=== PATIENT | male | born 1945 | race Caucasian/White ===

== ENCOUNTER → 2016-10-29 | Outpatient (CLI) | payer BC ==
[~2016-10-29] MED LIST: ASCO1CAP3 PO; CLC100 PO; CYAN500T13 PO; LISI20TA3 PO; MAGN400T6 PO; METO50TA16 PO; MULT-506 PO; SIMV20TA2 PO; TRIATAB3 PO
== END | disposition home or self-care (01) ==
LOC: C.LABMFLN 11:25
PROVIDERS: ATTEND Urology
DX: C61 Malignant neoplasm of prostate (principal)

== ENCOUNTER → 2016-11-20 | Outpatient (CLI) | payer BC ==
[2016-11-20 13:44] LABS: URINE APPEARANCE CLEAR (CLEAR); URINE BILIRUBIN NEG (NEG); URINE COLOR DK YELLOW; URINE NITRITE NEG (NEG); URINE PH 7.5 (4.5-7.5); URINE SPECIFIC GRAVITY 1.025 (1.000-1.030); UROBILINOGEN NEG (NEG)
[2016-11-20 13:47] LABS: MANUAL MICROSCOPIC REQUIRED? NO; REVIEW REQ? NO
== END | disposition home or self-care (01) ==
LOC: C.LABMFLN 11:06
PROVIDERS: ATTEND Surgery
DX: Z01.818 Encounter for other preprocedural examination (principal)

== ENCOUNTER → 2016-12-14 | Outpatient (CLI) | payer BC ==
[2016-12-14 14:30] LABS: CALCIUM 9.2 mg/dl (8.5-10.1)
[2016-12-14 14:33] LABS: ALT/SGPT 52 U/L (12-78); AST/SGOT 17 U/L (15-37); BLOOD UREA NITROGEN 22 mg/dl (7-18); BUN/CREATININE RATIO 22.9 (10-20); CARBON DIOXIDE 29 mmol/L (21-32); CHLORIDE 105 mmol/L (98-107); CHOLESTEROL 170 mg/dl (0-200); CREATININE 0.96 mg/dl (0.60-1.40); GLUCOSE 109 mg/dl (70-99); POTASSIUM 3.8 mmol/L (3.5-5.1); SODIUM 142 mmol/L (136-145); TRIGLYCERIDES 59 mg/dl (0-150); VERY LOW DENSITY LIPOPROT CALC 12 mg/dl
[2016-12-14 14:36] LABS: CHOLESTEROL/HDL RATIO 2.9; HDL CHOLESTEROL 59 mg/dl; LDL CHOLESTEROL CALCULATED 99 mg/dl
== END | disposition home or self-care (01) ==
LOC: C.LABMFLN 07:46
PROVIDERS: ATTEND Family Medicine
DX: I10 Essential (primary) hypertension (principal); E78.5 Hyperlipidemia, unspecified; E83.42 Hypomagnesemia; R97.20 Elevated prostate specific antigen [PSA]

== ENCOUNTER → 2017-05-07 | Outpatient (CLI) | payer BC | END | disposition home or self-care (01) | LOC: C.LABMFLN 08:16 | PROVIDERS: ATTEND Urology | DX: C61 Malignant neoplasm of prostate (principal) ==

== ENCOUNTER → 2017-08-18 | Outpatient (CLI) | payer BC ==
[~2017-08-18] MED LIST changes: +AMLO10TA3 PO; +CARV25TA PO; +HYDR25TA4 PO; +LISI40TA PO
[2017-08-18 13:25] LABS: ALT/SGPT 30 U/L (12-78); AST/SGOT 18 U/L (15-37); BLOOD UREA NITROGEN 20 mg/dl (7-18); CALCIUM 9.2 mg/dl (8.5-10.1); CARBON DIOXIDE 30 mmol/L (21-32); CREATININE 1.01 mg/dl (0.60-1.40); GLUCOSE 123 mg/dl (70-99); POTASSIUM 3.7 mmol/L (3.5-5.1); SODIUM 138 mmol/L (136-145)
[2017-08-18 13:28] LABS: CHOLESTEROL 152 mg/dl (0-200); LDL CHOLESTEROL CALCULATED 83 mg/dl
== END | disposition home or self-care (01) ==
LOC: C.LABMFLN 08:31
PROVIDERS: ATTEND Family Medicine
DX: I10 Essential (primary) hypertension (principal); E78.5 Hyperlipidemia, unspecified; E83.42 Hypomagnesemia

== ENCOUNTER → 2017-11-04 | Outpatient (CLI) | payer BC ==
[~2017-11-04] MED LIST changes: -AMLO10TA3 PO; -CARV25TA PO; -HYDR25TA4 PO; -LISI40TA PO
== END | disposition home or self-care (01) ==
LOC: C.LABMFLN 08:16
PROVIDERS: ATTEND Urology
DX: C61 Malignant neoplasm of prostate (principal)

== ENCOUNTER → 2018-04-11 | Day surgery (SDC) | payer BC ==
[2018-04-04 14:49] VITALS: BMI 27.0
[~2018-04-11] VITALS: Ht 180.3 cm; Wt 88.6 kg
[~2018-04-11] MED LIST changes: +AMLO10TA3 PO; +CARV25TA PO; -CLC100 PO; +HYDR25TA4 PO; -LISI20TA3 PO; +LISI40TA PO; -METO50TA16 PO; +PROPOFOL IV EMULSION 10 MG/ML 20 ML VIAL ONE; +SODIUM CHLORIDE 0.9% 500ML 500 ML IV ONE; -TRIATAB3 PO
[2018-04-11 13:00] VITALS: Ht 180.3 cm; Wt 88.6 kg
--- NOTE | 2018-04-11 13:42 | Endo History and Physical ---
History & Physical Date of Service: Apr 11, 2018. Chief Complaint: SCREENING Referring Physician: DR. GRAVES History of Present Illness 72 yo CM who presents for screening colonoscopy. Past Medical History Arthritis, High Cholesterol, Hypertension Past Surgical History Hx Cardiac Surgery: No Hx Internal Defibrillator: No Hx Pacemaker: No Hx Abdominal Surgery: No Hx of Implantable Prosthesis: No Hx Post-Op Nausea and Vomiting: No Hx Cancer Surgery: Yes (PROSTATECTOMY) Hx Thoracic Surgery: No Hx Orthopedic: Yes (LUMBAR DISC,R RCR, FINGER AMP REVISION) Hx Urinary Tract Surgery: Yes (TURP, PROSTATECTOMY, artificial urethral sphincter surgery) Family History None Social History Smoking Status: Former Smoker Hx Substance Use: No Hx Alcohol Use: No Allergies Coded Allergies: Penicillins (Verified Allergy, Unknown, HIVES, 04/04/18) Current Medications Reported Home Medications Medications Dose Route/Sig Max Daily Dose Days Date Category Norvasc (Amlodipine Besylate) 10 Mg Tab 10 Mg PO QAM 04/04/18 Reported Coreg (Carvedilol) 25 Mg Tab 25 Mg PO BID 04/04/18 Reported Hctz (Hydrochlorothiazide) 25 Mg Tab 25 Mg PO QAM 04/04/18 Reported Zestril (Lisinopril) 40 Mg Tab 40 Mg PO QAM 04/04/18 Reported Vitamin B12 500MCG (Cyanocobalamin) 500 Mcg Tab 500 Mcg PO QAM 04/08/15 Reported Vitamin C (Ascorbic Acid) 500 Mg Cap 500 Mg PO QAM 04/08/15 Reported Multivitamin (Multivitamins) Tab 1 Tab PO QAM 04/08/15 Reported Zocor (Simvastatin) 20 Mg Tab 20 Mg PO QPM 04/08/15 Reported Mag-Ox (Magnesium Oxide) 400 Mg Tab 400 Mg PO QAM 04/08/15 Reported Vital Signs Weight (Kilograms): 88.64 Height (Feet): 5 Height (Inches): 11 Date Time Temp Pulse Resp B/P (MAP) Pulse Ox O2 Delivery O2 Flow Rate FiO2 04/11/18 13:10 36.5 68 18 130/80 (97) 96 Room Air Physical Exam General Appearance: WD/WN, no apparent distress Respiratory/Chest: Auscultation: breath sounds normal Cardiovascular: Heart Auscultation: RRR Abdomen: Bowel Sounds: normal Inspection & Palpation: soft, non-distended, no tenderness, guarding & rebound Assessment and Plan Assessment: 72 yo CM who presents for screening colonoscopy. Plan: Proceed with colonoscopy.
--- NOTE | 2018-04-11 14:14 | Discharge Instructions ---
Endoscopy Patient Instructions Date / Procedure(s) Performed Apr 11, 2018. Colonoscopy Allergy Information Coded Allergies: Penicillins (Verified Allergy, Unknown, HIVES, 04/04/18) Discharge Date / Findings Apr 11, 2018. Colon polyp Diverticulosis Internal hemorrhoids Medication Instructions OK to resume all medications today as prescribed Reported Home Medications Medications Dose Route/Sig Max Daily Dose Days Date Category Norvasc (Amlodipine Besylate) 10 Mg Tab 10 Mg PO QAM 04/04/18 Reported Coreg (Carvedilol) 25 Mg Tab 25 Mg PO BID 04/04/18 Reported Hctz (Hydrochlorothiazide) 25 Mg Tab 25 Mg PO QAM 04/04/18 Reported Zestril (Lisinopril) 40 Mg Tab 40 Mg PO QAM 04/04/18 Reported Vitamin B12 500MCG (Cyanocobalamin) 500 Mcg Tab 500 Mcg PO QAM 04/08/15 Reported Vitamin C (Ascorbic Acid) 500 Mg Cap 500 Mg PO QAM 04/08/15 Reported Multivitamin (Multivitamins) Tab 1 Tab PO QAM 04/08/15 Reported Zocor (Simvastatin) 20 Mg Tab 20 Mg PO QPM 04/08/15 Reported Mag-Ox (Magnesium Oxide) 400 Mg Tab 400 Mg PO QAM 04/08/15 Reported Provider Instructions Activity Restrictions - No exercising or heavy lifting for 24 hours. - Do not drink alcohol the day of the procedure. - Do not drive a car or operate machinery until the day after the procedure. - Do not make any important decisions or sign important papers in 24 hours after the procedure. Following Day: - Return to full activity which may include returning to work/school. Diet Start your diet with liquids and light foods (jello, soup, juice, toast). Then eat your usual diet if not nauseated. Treatment For Common After Affects For mild abdominal pain, bloating, or excessive gas: - Rest - Eat lightly - Lie on right side Follow-Up Information Follow-up with DR. GRAVES as scheduled Anesthesia Information What You Should Know You have had a procedure that required some medicine to reduce anxiety and discomfort. This treatment is called moderate sedation. After receiving the treatment, you may be sleepy, but you will be able to breathe on your own. The effects of the treatment may last for several hours. Follow these instructions along with Activity/Diet recommendations noted above: * Do NOT do anything where dizziness or clumsiness would be dangerous. * Rest quietly at home today, then you can be up and about tomorrow. * Have a responsible person stay with you the rest of today. * You may have had an I.V. today. If so, you may take the dressing off later today. Recommendations Call your doctor if: * Trouble breathing * Continuous vomiting for more than 24 hours * Temperature above 101 degrees * Severe abdominal pain or bloating * Pain not relieved by pain medicine ordered * There is increased drainage or redness from any incision * A large amount of rectal bleeding greater than 2-3 tablespoons. (If you had a polyp/s removed or have hemorrhoids, a small amount of blood - from the rectum is to be expected.) * You have any unanswered questions or concerns. IN THE EVENT OF A SERIOUS EMERGENCY, GO TO THE NEAREST EMERGENCY ROOM Your discharge instructions were prepared by provider Abhinav Ross. Patient Instructions Signature Page Merrick Trinh Patient (or Guardian) Signature/Date: I have read and understand the instructions given to me by my caregivers. Caregiver/RN/Doctor Signature/Date: The above-named patient and/or guardian has received patient instructions on this date. + Original Patient Signature Page (only) stays with chart. Please make copy for patient.
--- NOTE | 2018-04-11 14:18 | GI REPORT ---
Patient Name: Merrick Trinh Procedure Date: 04/11/2018 1:16 PM Date of : 1945 Admit Type: Outpatient Age: 72 Gender: Male Attending MD: Abhinav Ross DO Procedure: Colonoscopy Providers: Abhinav Ross DO Referring MD: Hung Shelby Indications: Screening for colorectal malignant neoplasm Medicines: Monitored Anesthesia Care Complications: No immediate complications. Estimated Blood Loss: Estimated blood loss: none. Procedure: Pre-Anesthesia Assessment: - Prior to the procedure, a History and Physical was performed, and patient medications and allergies were reviewed. The patient's tolerance of previous anesthesia was also reviewed. The risks and benefits of the procedure and the sedation options and risks were discussed with the patient. All questions were answered, and informed consent was obtained. Prior Anticoagulants: The patient has taken no previous anticoagulant or antiplatelet agents. ASA Grade Assessment: II - A patient with mild systemic disease. After reviewing the risks and benefits, the patient was deemed in satisfactory condition to undergo the procedure. After I obtained informed consent, the scope was passed under direct vision. Throughout the procedure, the patient's blood pressure, pulse, and oxygen saturations were monitored continuously. The scope was introduced through the anus and advanced to the terminal ileum. The colonoscopy was performed without difficulty. The patient tolerated the procedure well. The quality of the bowel preparation was good. The rectum was photographed. (The terminal ileum was intubated, however, pictures of the Terminal ileum, Ileocecal valve and appendiceal orifice did not capture). Findings: The perianal and digital rectal examinations were normal. A 6 mm polyp was found in the ascending colon. The polyp was sessile. The polyp was removed with a hot snare. Resection and retrieval were complete. Multiple small-mouthed diverticula were found in the sigmoid colon. Non-bleeding internal hemorrhoids were found during retroflexion. The hemorrhoids were small. Impression: - One 6 mm polyp in the ascending colon, removed with a hot snare. Resected and retrieved. - Diverticulosis in the sigmoid colon. - Non-bleeding internal hemorrhoids. Recommendation: - Resume previous diet. - Continue present medications. - Repeat colonoscopy for surveillance based on pathology results. - Return to primary care physician as previously scheduled. Abhinav Ross DO 04/11/2018 2:18:26 PM This report has been signed electronically. Note Initiated On: 04/11/2018 1:16 PM Number of Addenda: 0 I attest to the content of the Intraoperative Record and orders documented therein, exceptions below {[id number]}
[2018-04-11 14:45] VITALS: BP 118/75; PULSE 65; O2SAT 75
--- NOTE | 2018-04-11 15:02 | Anesthesiology Progress Note ---
Anesthesia Post Op Note Date & Time Apr 11, 2018 at 15:02 Vital Signs Pain Intensity: 0 Vital Signs Past 12 Hours Date Time Temp Pulse Resp B/P (MAP) Pulse Ox O2 Delivery O2 Flow Rate FiO2 04/11/18 14:45 65 18 118/75 (89) 75 Room Air 04/11/18 14:30 67 18 101/60 (74) 96 Room Air 04/11/18 14:15 36.5 66 16 98/57 (71) 95 Room Air 04/11/18 13:10 36.5 68 18 130/80 (97) 96 Room Air Notes Mental Status: alert / awake / arousable, participated in evaluation Pt Amnestic to Procedure: Yes Nausea / Vomiting: adequately controlled Pain: adequately controlled Airway Patency, RR, SpO2: stable & adequate BP & HR: stable & adequate Hydration State: stable & adequate Anesthetic Complications: no major complications apparent
== END | disposition home or self-care (01) ==
LOC: C.GI 12:45
PROVIDERS: ATTEND Internal Medicine
DX: Z12.11 Encounter for screening for malignant neoplasm of colon (principal); D12.2 Benign neoplasm of ascending colon; K57.30 Diverticulosis of large intestine without perforation or abscess without bleeding; K64.8 Other hemorrhoids; I10 Essential (primary) hypertension; E78.00 Pure hypercholesterolemia, unspecified; M19.90 Unspecified osteoarthritis, unspecified site; Z88.0 Allergy status to penicillin; Z87.891 Personal history of nicotine dependence; Z79.899 Other long term (current) drug therapy; Z85.46 Personal history of malignant neoplasm of prostate